=== PATIENT | female | born 1985 | race African-American/Black ===

== ENCOUNTER 2016-10-06 18:04 | Emergency (ER) | payer SELFPAY | END 2016-10-06 18:25 | disposition home or self-care (01) | LOC: NAV ERS 18:04 | DX: J06.9 Acute upper respiratory infection, unspecified (principal) | CPT/HCPCS: 99282 ==

== ENCOUNTER 2016-10-09 13:39 | Emergency (ER) | payer SELFPAY ==
[2016-10-09 14:07] LABS: Bilirubin Negative (Negative); Blood, Urine Negative (Negative); Glucose, Urine (Dipstick) Negative (Negative); Ketone, Urine Negative (Negative); Nitrite Negative (Negative); Protein, Urine (Dipstick) Trace mg/dL (Neg-Trace); Urobilinogen 0.2 mg/dL (0.2-1.0)
[2016-10-09 14:08] LABS: Bacteria/HPF 1+ HPF (None Seen); RBC/HPF 0-3 HPF (0-3); Trichomonas/HPF 1+ HPF (None Seen); WBC/HPF 21-50 HPF (0-3)
== END 2016-10-09 14:24 | disposition home or self-care (01) ==
LOC: NAV ERS 13:39
DX: N39.0 Urinary tract infection, site not specified (principal); A59.01 Trichomonal vulvovaginitis
CPT/HCPCS: 81003; 81015; 81025; 99283

== ENCOUNTER 2016-11-26 22:48 | Emergency (ER) | payer SELFPAY ==
[2016-11-26] MEDS ORDERED: Ibuprofen 800 MG TAB ONE (23:14)
== END 2016-11-26 23:26 | disposition home or self-care (01) ==
LOC: NAV ERS 22:48
DX: M17.0 Bilateral primary osteoarthritis of knee (principal)
CPT/HCPCS: 99283

== ENCOUNTER 2017-02-23 23:22 | Emergency (ER) | payer SELFPAY ==
[2017-02-23] MEDS ORDERED: Lidocaine Viscous Sol 2% 15 ml UD Cup ONE (23:36)
[2017-02-23] MEDS ORDERED: Mag-Al Plus 1200 MG/1200 MG/120 MG/30 ML UDCUP ONE (23:36)
== END 2017-02-24 00:23 | disposition home or self-care (01) ==
LOC: NAV ERS 23:22
DX: R07.2 Precordial pain (principal)
CPT/HCPCS: 93005

== ENCOUNTER 2017-11-11 22:20 | Emergency (ER) | payer SELFPAY | END 2017-11-11 22:55 | disposition home or self-care (01) | LOC: NAV ERS 22:20 | DX: K04.7 Periapical abscess without sinus (principal) | CPT/HCPCS: 99283 ==

== ENCOUNTER 2017-11-20 13:42 | Emergency (ER) | payer SELFPAY ==
--- NOTE | 2017-11-20 15:50 | CT ---
FACIAL BONE CT SCAN WITHOUT IV CONTRAST: History: 32-year-old female with history of facial injury while playing basketball with swelling and pain to f orehead and black eyes. FINDINGS: There is no evidence for acute facial bone fracture. The mandible appears intact as does the zygomati c arches and sinuses. The orbits appear intact. Mild sinus mucosal disease. Extensive multiple dental caries and periodontal disease. IMPRESSION: No significant facial bone fracture. Mild sinus mucosal disease. Dental caries and periodontal diseas e. POS: [facility]
== END 2017-11-20 15:11 | disposition home or self-care (01) ==
LOC: NAV ERS 13:42
DX: S00.83XA Contusion of other part of head, initial encounter (principal); M19.90 Unspecified osteoarthritis, unspecified site; W21.89XA Striking against or struck by other sports equipment, initial encounter; Y93.67 Activity, basketball; Y92.39 Other specified sports and athletic area as the place of occurrence of the external cause; Y99.8 Other external cause status
CPT/HCPCS: 70486

== ENCOUNTER 2018-07-02 11:43 | Emergency (ER) | payer MEDICAID, SELFPAY ==
[2018-07-02] MEDS ORDERED: Ondansetron ODT 4 MG TAB ONE (12:22)
[2018-07-02 12:29] LABS: #Basophils 0.1 thou/uL (0.0-0.2); #Eosinphils 0.2 thou/uL (0.0-0.7); #Lymphocytes 1.3 thou/uL (1.20-3.40); #Monocytes 0.3 thou/uL (0.11-0.59); #Neutrophils 4.5 thou/uL (1.40-6.50); %Basophils 0.9 % (0.0-1.0); %Eosinophils 3.8 % (0.0-10.0); %Lymphocytes 20.6 % (21.0-51.0); %Monocytes 5.1 % (0.0-10.0); %Neutrophils 69.6 % (42.0-75.0); Hemoglobin 12.4 g/dL (12.0-16.0); Mean Corpuscular HGB CONC 33.2 g/dL (32.0-36.0); Mean Corpuscular Hemoglobin 31.5 pg (27.0-31.0); Mean Corpuscular Volume 95.1 fL (78.0-98.0); Mean Platelet Volume 7.2 fL (7.4-10.4); Platelet Count 278 thou/uL (130-400); RBC Distribution Width 11.8 % (11.5-14.5); Red Blood Cell (RBC) Count 3.93 mill/uL (4.20-5.40); White Blood Cell (WBC) Count 6.4 thou/uL (4.8-10.8)
[2018-07-02 12:43] LABS: ALT (SGPT) 10 U/L (8-55); AST (SGOT) 15 U/L (5-34); Albumin 3.8 g/dL (3.5-5.0); Alkaline Phosphatase 100 U/L (40-150); Anion Gap 12 mmol/L (10-20); BUN (Urea Nitrogen) 8 mg/dL (7.0-18.7); Bilirubin, Total 0.4 mg/dL (0.2-1.2); CKMB 0.7 ng/mL (0-6.6); Calc. Creatinine Clearance 0 mL/min (70-130); Carbon Dioxide 23 mmol/L (22-29); Chloride 104 mmol/L (98-107); Estimated GFR-MDRD Greater than 90; Globulin 3.1 g/dL (2.4-3.5); Glucose 106 mg/dL (70-105); Lipase 35 U/L (8-78); Potassium 3.7 mmol/L (3.5-5.1); Protein, Total 6.9 g/dL (6.0-8.3); Sodium 135 mmol/L (136-145); Troponin I Less than 0.010 ng/mL (< 0.028)
[2018-07-02 12:50] LABS: BHCG - Serum Negative (NEGATIVE); Pregs Control Bar Appear? YES (CONTROL BAR)
--- NOTE | 2018-07-02 13:25 | RAD ---
CHEST PA AND LATERAL: History: 33-year-old female with history of epigastric and chest pain. Comparison: 03-27-12 FINDINGS: Heart size is normal. The lungs are clear. Monitor leads overlie the chest. IMPRESSION: No acute intrathoracic disease. Stable from prior study. POS: [facility]
== END 2018-07-02 13:50 | disposition home or self-care (01) ==
LOC: NAV ERS 11:43
DX: R07.9 Chest pain, unspecified (principal); M19.90 Unspecified osteoarthritis, unspecified site
CPT/HCPCS: 36415; 71046; 80053; 82553; 83690; 84484; 84703; 85025; 85379; 93005; Q0162

== ENCOUNTER 2018-12-22 17:27 | Emergency (ER) | payer MEDICAID ==
[~2018-12-22 17:27] MED LIST: Iopamidol 370 76% 100 ML VIAL ONE
[2018-12-22 17:44] LABS: Bilirubin Negative (Negative); Blood, Urine Trace (Negative); Clarity Clear (Clear); Glucose, Urine (Dipstick) Negative (Negative); Leukocyte Negative (Negative); Nitrite Negative (Negative); Protein, Urine (Dipstick) Negative (Neg-Trace); Urobilinogen 0.2 mg/dL (0.2-1.0); pH, Urine 6.5 (5.0-9.0)
[2018-12-22 17:47] LABS: Pregnancy Test - Urine (BHCG) Negative (Negative); Pregu Control Background? CLEAR/WHITE (CLR/WHITE); Pregu Control Bar Appear? YES (CONTROL BAR)
[2018-12-22 17:58] LABS: Bacteria/HPF None Seen HPF (None Seen); RBC/HPF 0-3 HPF (0-3); Squamous Epithelial 0-3 HPF (0-3); WBC/HPF None Seen HPF (0-3)
[2018-12-22 17:59] LABS: #Eosinphils 0.3 thou/uL (0.0-0.7); #Lymphocytes 1.7 thou/uL (1.20-3.40); #Monocytes 0.6 thou/uL (0.11-0.59); #Neutrophils 5.1 thou/uL (1.40-6.50); %Basophils 0.6 % (0.0-1.0); %Eosinophils 4.3 % (0.0-10.0); %Monocytes 7.4 % (0.0-10.0); %Neutrophils 65.7 % (42.0-75.0); Hemoglobin 11.6 g/dL (12.0-16.0); Mean Corpuscular HGB CONC 31.1 g/dL (32.0-36.0); Mean Corpuscular Hemoglobin 29.2 pg (27.0-31.0); Mean Corpuscular Volume 93.8 fL (78.0-98.0); Mean Platelet Volume 6.1 fL (7.4-10.4); Platelet Count 308 thou/uL (130-400); RBC Distribution Width 12.9 % (11.5-14.5); Red Blood Cell (RBC) Count 3.96 mill/uL (4.20-5.40); White Blood Cell (WBC) Count 7.7 thou/uL (4.8-10.8)
[2018-12-22 18:17] LABS: ALT (SGPT) 13 U/L (8-55); AST (SGOT) 20 U/L (5-34); Albumin 4.2 g/dL (3.5-5.0); Alkaline Phosphatase 112 U/L (40-150); Anion Gap 15 mmol/L (10-20); BUN (Urea Nitrogen) 7 mg/dL (7.0-18.7); Bilirubin, Total 0.4 mg/dL (0.2-1.2); Calc. Creatinine Clearance 0 mL/min (70-130); Calcium 9.4 mg/dL (7.8-10.44); Carbon Dioxide 23 mmol/L (22-29); Chloride 103 mmol/L (98-107); Estimated GFR-MDRD Greater than 90; Globulin 3.4 g/dL (2.4-3.5); Glucose 88 mg/dL (70-105); Potassium 3.8 mmol/L (3.5-5.1); Protein, Total 7.6 g/dL (6.0-8.3); Sodium 137 mmol/L (136-145)
[2018-12-22] MEDS ORDERED: Ketorolac Tromethamine 30 MG/ML VIAL ONE (18:26)
--- NOTE | 2018-12-22 20:42 | CT ---
CT ABDOMEN WITH CONTRAST CT PELVIS WITH CONTRAST: DATE: 12/22/2018 HISTORY: 33-year-old female with right lower quadrant abdominal pain TECHNIQUE: IV injection of iodinated contrast media: Administered Oral contrast media:Administered FINDINGS: Liver: No focal solid mass. Spleen: No splenomegaly.. Pancreas: No mass or surrounding fat stranding.. Adrenals: No mass.. Kidneys: No hydronephrosis or enhancement abnormalities.. Ureters: No dilation. Bladder: No pathology identified. Abdominal aorta: No aneurysm. Small bowel: No dilation. Colon: No adjacent fat stranding. Appendix: Normal. Free air: None. Free fluid: Tiny amount in the cul-de-sac, physiologic in female of this age group.. IMPRESSION: 1. Normal appendix. 2. No pathology identified.
[2018-12-22 22:40] LABS: Wet Prep Clue Cells Clue Cells Absent (None Seen); Wet Prep Trichomonas Trichomonas Absent (None Seen)
== END 2018-12-22 23:03 | disposition home or self-care (01) ==
LOC: NAV ERS 17:27
DX: R10.31 Right lower quadrant pain (principal); M19.90 Unspecified osteoarthritis, unspecified site
CPT/HCPCS: 74177; 80053; 81003; 81015; 81025; 85025; 87210; 96374; J1885; Q9967

== ENCOUNTER 2020-02-24 18:12 | Emergency (ER) | payer MEDICAID, OTHER ==
[2020-02-24] MEDS ORDERED: Acetaminophen 500 MG TAB ONE (18:51)
[2020-02-26 11:42] LABS: SARS-CoV-2 N Gene Positive; SARS-CoV-2 orf1ab Positive
[2020-02-26 11:43] LABS: SARS-CoV-2 MS2 Positive; SARS-CoV-2 S Gene Positive
== END 2020-02-24 19:12 | disposition home or self-care (01) ==
LOC: NAV ERS 18:12
DX: U07.1 COVID-19 (principal); J06.9 Acute upper respiratory infection, unspecified; M19.90 Unspecified osteoarthritis, unspecified site
CPT/HCPCS: 87635; 99283; U0003